=== PATIENT | female | born 1955 | race Caucasian/White ===

== ENCOUNTER → 2020-04-22 | Outpatient (CLI) | payer OTHER ==
[~2020-04-22] VITALS: Ht 152.4 cm; Wt 84.8 kg
[~2020-04-22] MED LIST: ALDACTONE25 MG PO; ALLOPURINOL 10100 M3 PO; APAP500 PO; ASPIRIN81 M2 PO; BENADRYL25 MG; BENGAY GREASELE57 GM TOP; CLARITIN10 MG PO; COLACE100 MG PO; COREG25 M1 PO; EPOGEN10000 UNIT IJ; FERRLECIT62.5 MG/2 IV; HUMALOG100 UNIT/1 SUBQ; IBUPROFEN 800800 M1 PO; IMDUR 30 MG TAB30 M1 PO; LANTUS SUBQ; LEVOTHYROXIN0.112 M1 PO; LEVOXYL125 MCG PO; LIPITOR40 MG PO; LOPRESSOR50 PO; LOSARTAN POTAS100 MG PO; MIRALAX17 G1 PO; MULTIPLE VITAM1 EAC2 PO; NEPRO CARB STE237 ML PO; NEURONTIN 300M300 M2 PO; NITROSTAT0.4 M1; NORCO 5-325 TA1 EACH PO; NORVASC10 MG PO; NORVASC2.5 MG PO; PRILOSEC20 MG PO; REGLAN 10 MG TA10 MG PO; RENVELA800 MG PO; SERTRALINE HCL100 MG PO; SPIRIVA INH; TRIPHROCAPS SOFT1 MG PO; VENTOLIN HFA 1818 GM INH; VIRT-CAPS SOFTGE1 MG PO; VITAMIN E400 UNIT PO; ZOLOFT25 MG PO
--- NOTE | ~2020-04-22 | HPC ---
[facility] [address] [place] [address] PAIN MANAGEMENT CONSULTATION Name: ASHWIN OSCAR Room #: REG [facility] Lazaro.#: [id number] Admission: 04/22/20 Attend Phys: Roshan Gooden MD Discharge: Date of : 53 Report #: [id number] THIS REPORT FOR: cc: Hemal Saini,Roshan Lynne MD ~ CC: Dr. Velarde . Camille Solomon DATE OF SERVICE: 04/22/2020 CHIEF COMPLAINT: Diffuse neuropathic pain, feet, arms, hands, and right hand pain likely ischemia. This is a first visit for the patient who is here today on the referral of her daughter. I see her daughter for calciphylaxis, a complication of renal dialysis. The patient has chronic neuropathy of diabetes and has had longstanding renal dialysis dating back 2 decades. She was given renal transplant in 2009, but the transplant never performed and it was explanted in 2010. She continues dialysis 3 times a week at __ Sunday, Sunday and Sunday along with her daughter. She reports that she is in constant pain. Pain is severe. She scores it as a 9/10, shooting, sharp, stabbing, throbbing, steady and constant. Pain is in her right hand in particular. She has a large bulky fistula in the right forearm. This may have some involvement with the radial nerve as it passes into the hand. The fingers are cold and pale. She is -[place], but there is some color difference noted in the fingers involving the thumb, index and third finger. She has tried gabapentin, but finds it to be only modestly helpful. Hydrocodone does help, but she has been at low dose. Her report to me was that her current dose is 5/325. When I pulled the prescription drug monitoring program information, I see that Dr. Hemal Saini, her primary care physician has been allowing her to have a bit more medicine and stronger. She is no longer at 60 tablets of hydrocodone 5/325. She is receiving from Dr. Mckeon, hydrocodone 7.5/325, #90 tablets per month. Her morphine milligram equivalency is 22.5. She is responsive to opioids and reports that it provides more relief for her than gabapentin. MEDICATIONS: In addition to the hydrocodone listed above, she is on [address] [address] PAIN MANAGEMENT CONSULTATION Name: ASHWIN OSCAR Room #: REG CLI Jonh#: [id number] Admission: 04/22/20 Attend Phys: Roshan Gooden MD Discharge: Date of : 53 Report #: [id number] allopurinol, amlodipine, aspirin, atorvastatin, vitamin B complex, carvedilol, Benadryl, Colace, gabapentin 600 mg b.i.d., twice weekly, ibuprofen multiple minerals 800 mg b.i.d., insulin, NovoLog and Lantus, isosorbide, levothyroxine, losartan, Nitrostat, Prilosec, MiraLax, Zoloft, Renvela and tizanidine. ALLERGIES: TRAMADOL AND ZYRTEC. PAST MEDICAL HISTORY: Diabetes diagnosed in 1997, hypertension, coronary artery disease, prior stroke with resolution of some weakness on the right side, renal dialysis, end-stage renal disease, roughly 2 decades, gastritis and gastrointestinal issues. SURGERIES: Multiple listed surgeries are included in the patient's packet today and include multiple hemodialysis shunt and fistula procedures, parathyroidectomy, nephrectomy, and renal transplant, followed by transplant nephrectomy. SOCIAL HISTORY: She lives in [place] alone in her own apartment. She has a caregiver provided by Medicaid. It is her grandson who is allowed 4 hours a day of paid caregiver assistance. She reports that he cooks, cleans and does other chores for her. The patient has not worked since 1988. Denies tobacco and alcohol. REVIEW OF SYSTEMS: Positive for weight loss, decreased appetite, blurred vision, hearing loss, chest pain, dyspnea on exertion with walking, 2 liters nasal cannula oxygen at home and she also wears it at dialysis. She has a history of asthma, burning on urination. Frequent chronic headaches, lightheadedness, dizziness, numbness, tingling. Confusion at times and a history of depression. PHYSICAL EXAMINATION: GENERAL: Pleasant female, hard of hearing. VITAL SIGNS: Blood pressure 191/82, heart rate 74, respirations 16, O2 sat is 100%. BMI is 36.5. She can independently move from sitting to standing position, her gait is slow and shuffling. HEENT: Reveals pupils to be equal, round, reactive to light. EOMs are intact. She is very hard of hearing. NECK: Supple, but she has some pain with neck extension. No thyromegaly. Scar from prior surgery. CHEST: Clear, no wheezing. CARDIAC: Rhythm was regular. No audible murmur. ABDOMEN: Soft. MUSCULOSKELETAL: Reveals pain in both arms with lifting of the shoulders, flexion of the arms and extension. She has some tenderness over bulky renal dialysis fistula placed in the volar aspect of the forearm. She has mild allodynia in the C6 distribution. There is discoloration as described above. [address] [address] PAIN MANAGEMENT CONSULTATION Name: ASHWIN OSCAR Room #: REG 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 IMPRESSION: 1. Chronic neuropathic pain with some possible ischemia into the right hand. Her neuropathy is likely related to her diabetes. Renal failure may exacerbate this. Her daughter has calciphylaxis. I do not believe she has been given that diagnosis. RECOMMENDATION: She is receiving opioid medication from Dr. Mckeon and I think this is highly appropriate palliative in the setting. The CDC guideline suggests that physicians can prescribe opioids for patients in this setting and I would feel comfortable allowing her to take hydrocodone 10/325, the highest dose of hydrocodone up to 3 times a day that would take her morphine milligram equivalency dose to 30. I asked her if she felt that that would be satisfactory and provide adequate control of her pain, she said that she would be satisfied with that and feels that it would be more helpful than the 5/325 tablets that she reported today. I do not think she needs another physician to prescribe her hydrocodone. She is already receiving from Dr. Mckeon. I told her that I would support the increase to 07/03/25 and communicate that to Dr. Mckeon. I will try to reach him by phone. Otherwise, this letter and dictation will be sent to him. Followup visit scheduled only as needed. By: [id number] Roshan Gooden MD /pancho
[2020-04-22 10:53] VITALS: BP 191/82
--- NOTE | 2020-04-22 11:56 | NUR ---
Pain Clinic Assessment: 1. History of Osteoarthritis: History of Rheumatoid Arthritis: 2. Height: 5 ft. 0 in. 152.4 cm. Weight: 187.0 lb. oz. 84.823 kg. Patient's BMI: 36.5 3. Vital Signs: BP: 191/82 Pulse: 74 Resp: 16 Temp: 02 Sat: 100 ECG Mon: 4. Pain Intensity: 9 5. Fall Risk: Dizziness: Y Needs help standing or walking: Y Fallen in the last 3 months: N Fall risk comments: 6. Patient on Blood Thinner: None 7. History of Hypertension: Y 8. Opioid Therapy greater than 6 weeks: Y Opiate Contract Signed: 9. Risk Assessment Tool Provided: 1-LOW RISK 10. Functional Assessment Tool: 11. Recreational Drug Use: Unknown Drug Type: Tobacco Use: Never Smoker Tobacco Type: Amount or Packs/day: How Many Years: Alcohol Use: No Frequency: Quant:
== END ==
LOC: PAIN 03-25 09:01
PROVIDERS: ATTEND Anesthesiology Pain Medicine
DX: M79.2 Neuralgia and neuritis, unspecified (principal); G89.4 Chronic pain syndrome; Z88.8 Allergy status to other drugs, medicaments and biological substances; Z79.899 Other long term (current) drug therapy

== ENCOUNTER → 2020-08-05 | Outpatient (CLI) | payer OTHER ==
[~2020-08-05] VITALS: Ht 152.4 cm; Wt 90.5 kg
[2020-08-05 14:55] VITALS: BP 142/54
--- NOTE | 2020-08-05 15:16 | NUR ---
Pain Clinic Assessment: 1. History of Osteoarthritis: * HANDS KNEES History of Rheumatoid Arthritis: Not Applicable 2. Height: 5 ft. 0 in. 152.4 cm. Weight: 199.6 lb. oz. 90.538 kg. Patient's BMI: 39.0 3. Vital Signs: BP: 142/54 Pulse: 73 Resp: 14 Temp: 02 Sat: 95 ECG Mon: 4. Pain Intensity: 10 5. Fall Risk: Dizziness: N Needs help standing or walking: Y Fallen in the last 3 months: N Fall risk comments: 6. Patient on Blood Thinner: None 7. History of Hypertension: Y 8. Opioid Therapy greater than 6 weeks: Y Opiate Contract Signed: 9. Risk Assessment Tool Provided: 1-LOW RISK 10. Functional Assessment Tool: 11. Recreational Drug Use: Never Drug Type: Tobacco Use: Never Smoker Tobacco Type: Amount or Packs/day: How Many Years: Alcohol Use: No Frequency: Quant:
== END ==
LOC: PAIN 06:59
PROVIDERS: ATTEND Anesthesiology Pain Medicine
DX: E11.22 Type 2 diabetes mellitus with diabetic chronic kidney disease (principal); I12.0 Hypertensive chronic kidney disease with stage 5 chronic kidney disease or end stage renal disease; N18.6 End stage renal disease; G89.29 Other chronic pain; E11.40 Type 2 diabetes mellitus with diabetic neuropathy, unspecified; M19.011 Primary osteoarthritis, right shoulder; M19.012 Primary osteoarthritis, left shoulder; M79.10 Myalgia, unspecified site; Z99.2 Dependence on renal dialysis; I25.10 Atherosclerotic heart disease of native coronary artery without angina pectoris; Z86.73 Personal history of transient ischemic attack (TIA), and cerebral infarction without residual deficits; Z88.8 Allergy status to other drugs, medicaments and biological substances; Z79.899 Other long term (current) drug therapy